=== PATIENT | male | born 1985 | race Two or more races ===

== ENCOUNTER 2019-11-29 23:29 | Emergency (ER) | payer SELFPAY ==
[~2019-11-29] VITALS: Ht 185.4 cm; Wt 78.0 kg
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
[2019-11-30] MEDS ORDERED: IOHEXOL 300 MG/ML 75 ML VIAL. IV ONE (00:30)
[2019-11-30] MEDS ORDERED: CONTRAST GIVEN MC PRN (00:45)
--- NOTE | 2019-11-30 01:14 | RAD ---
INDICATION: Reason: Right knee pain, lateral swelling / Spl. Instructions: / History: COMPARISON: None. IMPRESSION: Right knee: 4 views obtained. Mild degenerative changes with joint space narrowing and early osteophyte formation. No evidence of acute fracture or dislocation. Electronically signed by: Kiet Hammond MD (11/30/2019 1:11 AM) [id number]
[2019-11-30 01:30] LABS: BASO % 0 % (0-3); EOS % 0 % (0-3); HEMATOCRIT 49.3 % (39.0-53.0); HEMOGLOBIN 16.4 g/dL (13.0-17.5); LYMPH % 14 % (24-48); MEAN CORPUSCULAR HEMOGLOBIN 31 pg (25-35); MEAN CORPUSCULAR HGB CONC 33 g/dL (31-37); MEAN CORPUSCULAR VOLUME 93 fL (79-100); MONO # 1.1 x10^3/uL (0.0-1.1); MONO % 8 % (0-9); NEUT % 78 % (31-73); PLATELET COUNT 331 x10^3/uL (140-400); RED BLOOD COUNT 5.32 x10^6/uL (4.30-5.70); RED CELL DISTRIBUTION WIDTH 14.4 % (11.5-14.5); WHITE BLOOD COUNT 14.2 x10^3/uL (4.0-11.0)
[2019-11-30] MEDS ORDERED: KETOROLAC 30 MG/ML VIAL. IVP ONE (01:30)
[2019-11-30 01:42] LABS: ALBUMIN 4.7 g/dL (3.4-5.0); CALCIUM 9.8 mg/dL (8.5-10.1); TOTAL BILIRUBIN 1.8 mg/dL (0.2-1.0)
--- NOTE | 2019-11-30 01:51 | RAD ---
INDICATION: Reason: Right knee pain with lateral side mass / Spl. Instructions: / History: COMPARISON: Plain film from earlier same day TECHNIQUE: Axial CT images obtained through the right knee with contrast One or more of the following individualized dose reduction techniques were utilized for this examination: 1. Automated exposure control; 2. Adjustment of the mA and/or kV according to patient size; 3. Use of iterative reconstruction technique. FINDINGS: lateral to the lateral femoral condyle within the musculature there is a rim-enhancing mixed fluid and air density structure measuring approximately 36 x 20 mm. Adjacent stranding of fat. Degenerative changes to the knee. Within the popliteal fossa there is a fluid density structure measuring up to 19 x 12 mm which could be from a cystic lesion within the area.. Loose body within the knee joint. There is some air at the medial and lateral compartment. No acute fracture or dislocation IMPRESSION: * Lateral to the lateral femoral condyle there is a air and fluid-filled structure identified which could be secondary to abscess formation. * Within the medial and lateral compartment of the knee there is a small amount of air is seen. This can be related to degenerative changes but given the proximity to the patient's suspected abscess infectious etiology is not excluded. Electronically signed by: Kiet Hammond MD (11/30/2019 1:48 AM) [id number]
[2019-11-30] MEDS ORDERED: cefTRIAXone IM 1 GM VIAL IM ONE (02:30)
[2019-11-30] MEDS ORDERED: VANCOMYCIN 1 GM in IV NORMAL SALINE 250ML 250 ML IV ONE (02:30)
[2019-11-30] MEDS ORDERED: LORazepam 1 MG TABLET PO ONE (02:30)
[2019-11-30] MEDS ORDERED: SULF1TAB24 PO (02:32)
[2019-11-30] MEDS ORDERED: IV NORMAL SALINE 250ML 250 ML ONE (02:44)
[2019-11-30] MEDS ORDERED: VANCOMYCIN 1 GM VIAL. ONE (02:44)
[2019-11-30] MEDS ORDERED: ONDANSETRON PF 4 MG/2 ML VIAL. IVP ONE (03:00)
[2019-11-30] MEDS ORDERED: SMZ/TMP 800/160MG TABLET. PO ONE (03:00)
[2019-11-30 03:03] LABS: CREATININE 1.5 mg/dL (0.7-1.3); DIRECT BILIRUBIN 0.3 mg/dL (0.0-0.2); GFR 53.6; POTASSIUM 4.1 mmol/L (3.5-5.1); TOTAL PROTEIN 8.4 g/dL (6.4-8.2)
[2019-11-30 04:15] VITALS: BP 120/77
== END 2019-11-30 04:20 | disposition home or self-care (01) ==
LOC: ER 23:29
DX: L72.8 Other follicular cysts of the skin and subcutaneous tissue (principal); M25.561 Pain in right knee; R22.41 Localized swelling, mass and lump, right lower limb; D72.829 Elevated white blood cell count, unspecified; F19.10 Other psychoactive substance abuse, uncomplicated; F41.9 Anxiety disorder, unspecified; F17.210 Nicotine dependence, cigarettes, uncomplicated
CPT/HCPCS: 20610; 36415; 73564; 73701; 80048; 80076; 85025; 86140; 86705; 86709; 86803; 87040; 87070; 87205; 87340; 96365; 96372; 96375; 99285; J0696; J1885; J2060; J2405; J3370; J7050; Q9967; 96374